=== PATIENT | male | born 1945 | race Caucasian/White ===

== ENCOUNTER → 2022-12-20 14:41 | Outpatient (BNVA) | payer MEDICARE, SELFPAY | PROVIDERS: PCP Family Medicine; Visit Provider Nurse Practitioner Family | DX: R50.9 Fever, unspecified (principal); Z20.822 Contact with and (suspected) exposure to COVID-19 | CPT/HCPCS: 87400; 87426 ==

== ENCOUNTER 2024-11-01 11:39 | Outpatient (CLI) | payer MEDICARE, OTHER, SELFPAY ==
--- NOTE | 2024-11-01 11:44 | MR_ITS ---
WS: [id number] MRI BRAIN WITH AND WITHOUT CONTRAST HISTORY: Weakness. COMPARISON: None available. TECHNIQUE: Multiplanar imaging performed through the brain with MultiHance 16 ml's IV. No acute infarcts are seen. Moreira-white matter differentiation is well preserved. There are a few scat tered T2 and FLAIR signal hyperintensities throughout the white matter. No significant amount of agustin a. No prior large territory infarct. Mild volume loss. No hemorrhage. No susceptibility artifacts or prior lacunar infarcts. Ventricles and extra-axial spaces are normal. Clivus and pituitary gland are normal. Visualized posterior fossa and brainstem are also normal. Postcontrast images are negative for masses or vascular malformations. Dural venous sinuses are normal. Paranasal sinuses: Well aerated with no significant disease. Mastoid air cells: Normal. Calvarium and scalp: Normal. MR/MR head wo/w con [id number] IMPRESSION: 1. No acute infarct or chronic infarct. 2. Minimal small vessel ischemic disease. No enhancement, mass or vascular mal formations identified. 3. Mild cerebral atrophy.
--- NOTE | 2024-11-01 11:45 | MR_ITS ---
WS: [id number] MRI CERVICAL SPINE NONCONTRAST HISTORY: M53.82 COMPARISON: None available. Technique: Multiplanar, multisequence noncontrast imaging of the cervical spine. Moderate increase in the cervical lordosis. No acute fractures or marrow edema. Disc bases are mildly narrowed and desiccated. Slight retrolisthesis of C2 and C3. Signal within the cervical cord is normal. Visualized posterior fossa is unremarkable. Craniocervical junction, C1 and C2 relationship, odontoid process and soft tissues are normal. C2-C3: Osteophytic ridging, central disc protrusion and facet arthritis. Mild bilateral foraminal nikolay nosis. C3-C4: Diffuse annular disc bulging with osteophytic ridging. Fluid in the facet joints and moderate facet arthritis. Effacement of ventral CSF. Moderate central and bilateral foraminal stenosis. C4-C5: Diffuse annular disc bulging with facet arthritis. Bilateral foraminal osteophytes. Mild centr al and bilateral foraminal stenosis. C5-C6: Mild annular disc bulging and osteophytic ridging with facet arthritis. Mild central and saul inal stenosis. C6-C7: Mild annular disc bulging and facet arthritis. At least mild foraminal stenosis. C7-T1: Normal. Small amount of edema in the paraspinal muscles from C3-C7. MR/MR cervical spin wo con* [id number] IMPRESSION: 1. Moderate increase in the cervical lordosis. 2. Interspinous muscle edema from C3-C7. No history of trauma. Consider mild i nflammatory process. 3. C3-4: Moderate central and bilateral foraminal stenosis with fluid in the f acet joints and synovitis. 4. Additional mild central and foraminal stenosis as described above.
[2024-11-01] MEDS: gadobenate dimeglumine 20 mL vial 16 ML IV (13:18)
== END 2024-11-01 11:40 | disposition home or self-care (01) ==
LOC: RAD 11:39
PROVIDERS: PCP Family Medicine; Referring Provider Psychiatry & Neurology Neurology; Visit Provider Nurse Practitioner Family
DX: M48.02 Spinal stenosis, cervical region (principal); M53.82 Other specified dorsopathies, cervical region; M65.88 Other synovitis and tenosynovitis, other site; R93.89 Abnormal findings on diagnostic imaging of other specified body structures; M50.21 Other cervical disc displacement, high cervical region; M47.892 Other spondylosis, cervical region; M50.31 Other cervical disc degeneration, high cervical region; M50.321 Other cervical disc degeneration at C4-C5 level; M25.78 Osteophyte, vertebrae; M50.322 Other cervical disc degeneration at C5-C6 level; M50.323 Other cervical disc degeneration at C6-C7 level; G31.89 Other specified degenerative diseases of nervous system; R93.0 Abnormal findings on diagnostic imaging of skull and head, not elsewhere classified
CPT/HCPCS: 70553; 72141